=== PATIENT | male | born 1975 | race Caucasian/White ===

== ENCOUNTER 2019-05-20 00:37 | Emergency (ER) | payer BC, OTHER ==
[~2019-05-20] VITALS: Ht 177.8 cm; Wt 102.5 kg
[2019-05-20] MEDS ORDERED: OSEL75CA PO (00:47)
--- NOTE | 2019-05-20 01:14 | NUR ---
Dr. Cardoso at bedside for MSE.
[2019-05-20] MEDS ORDERED: IBUPROFEN 800 MG TABLET PO ONE (01:30)
[2019-05-20] MEDS ORDERED: IV NORMAL SALINE 1000 ML BAG IV ONE (01:30)
[2019-05-20] MEDS ORDERED: ACETAMINOPHEN ES 500 MG TABLET PO ONE (01:30)
[2019-05-20] MEDS ORDERED: IBUPROFEN 800 MG TABLET ONE (01:31)
[2019-05-20] MEDS ORDERED: ACETAMINOPHEN ES 500 MG TABLET ONE (01:32)
[2019-05-20 01:35] LABS: BASOPHILS % (AUTO) 0.3 % (0.0-2.0); HEMATOCRIT 47.2 % (36.7-47.1); HEMOGLOBIN 15.7 g/dL (12.5-16.3); LYMPHOCYTES # (AUTO) 0.7 K/uL (20.0-40.0); LYMPHOCYTES % (AUTO) 5.5 % (20.5-51.5); MEAN CORPUSCULAR HEMOGLOBIN 28.8 uug (23.8-33.4); MEAN CORPUSCULAR HGB CONC 33 g/dL (32.5-36.3); MEAN CORPUSCULAR VOLUME 86.3 fL (73.0-96.2); MONOCYTES # (AUTO) 0.7 K/uL (2.0-10.0); MONOCYTES % (AUTO) 5.8 % (0.0-11.0); NEUTROPHILS % (AUTO) 88.4 % (38.5-71.5); PLATELET COUNT (AUTO) 148 K/uL (152-348); RED BLOOD CELL COUNT(AUTO) 5.47 MIL/uL (4.06-5.63); WHITE BLOOD COUNT (AUTO) 12.5 K/uL (3.6-10.2)
--- NOTE | 2019-05-20 01:40 | NUR ---
Xray at bedside.
[2019-05-20 01:45] LABS: MAGNESIUM 1.4 mg/dL (1.8-2.4); PHOSPHOROUS 1.8 mg/dL (2.5-4.9)
[2019-05-20 01:57] LABS: BILIRUBIN,DIRECT 0.2 mg/dL (0.0-0.2); BILIRUBIN,TOTAL 0.8 mg/dL (0.2-1.0); CREATININE 1.5 mg/dL (0.6-1.3); POTASSIUM 3.8 mmol/L (3.5-5.1); TOTAL PROTEIN, SERUM 7.3 g/dL (6.4-8.2)
[2019-05-20] MEDS ORDERED: NEUTRA PHOS PACKET PO ONE (02:15)
[2019-05-20] MEDS ORDERED: MAGNESIUM SULFATE/D5W 100 ML ONE ×2 (02:25→03:16)
[2019-05-20] MEDS ORDERED: NEUTRA PHOS PACKET ONE (02:39)
[2019-05-20] MEDS: MAGNESIUM SULFATE/D5W 100 ML IV SCH ×2 (02:39→03:24)
[2019-05-20 03:43] LABS: *BILIRUBIN,URIN NEGATIVE (NEGATIVE); *BLOOD, URINE NEGATIVE (NEGATIVE); *CLARITY,URINE CLEAR (CLEAR); *COLOR,URINE YELLOW (YELLOW); *KETONES,URINE NEGATIVE (NEGATIVE); LEUKOCYTE ESTERASE ,URINE NEGATIVE (NEGATIVE); NITRITE, URINE NEGATIVE (NEGATIVE); UGLUCOSE NEGATIVE (NEGATIVE)
[2019-05-20 03:56] LABS: BACTERIA,URINE FEW /HPF (NONE SEEN); RBC,URINE 0-3 /HPF (0-3); SQUAMOUS EPITHELIAL CELL,UR FEW /HPF (NONE SEEN); WBC,URINE 0-3 /HPF (0-3)
[2019-05-20] MEDS ORDERED: LEVOFLOXACIN 750 MG TABLET ONE (04:13)
[2019-05-20] MEDS ORDERED: LEVOFLOXACIN 750 MG TABLET PO ONE (04:15)
--- NOTE | 2019-05-20 04:16 | NUR ---
Patient discharged to home in stable conditon. Written and verbal after care instructions given. Patient verbalizes understanding of instructions. Pt ambulated out of ER with steady gait, no acute signs of distress, VSS, all belongings taken, IV site discontinued.
[2019-05-20 04:17] VITALS: BP 110/66
== END 2019-05-20 04:17 | disposition home or self-care (01) ==
LOC: ER 00:45
DX: R50.9 Fever, unspecified (principal); E83.39 Other disorders of phosphorus metabolism; E83.42 Hypomagnesemia; N17.9 Acute kidney failure, unspecified; I51.7 Cardiomegaly; Z79.899 Other long term (current) drug therapy
CPT/HCPCS: 36415; 71045; 80048; 80076; 81000; 81001; 83605; 83735; 83880; 84100; 84484; 85025; 87040 ×2; 87086; 87400; 93005; 96365; 99284; J3475 ×2; 70030-TC; A4663; A9150; J7030; J7050